=== PATIENT | male | born 1955 | race Caucasian/White ===

== ENCOUNTER 2020-01-10 15:54 | Emergency (ER) | payer BC ==
[~2020-01-10] VITALS: Ht 172.7 cm; Wt 89.0 kg
[~2020-01-10 15:54] MED LIST: LIDOcaine 1% W/epiNEPHrine 1:100,000 20ml vial ONE
[2020-01-10] MEDS ORDERED: bacitracin 15gm ointment TP ONE (16:00)
[2020-01-10] MEDS ORDERED: TETanus/Pertussis (Acell)/Diphther VAC/PF (Tdap-Adult) 0.5ml syringe IMVAC ONE (16:00)
[2020-01-10 16:01] VITALS: BP 142/91
[2020-01-10] MEDS ORDERED: CEPH250T PO (16:36)
== END 2020-01-10 16:53 | disposition home or self-care (01) ==
LOC: ER 15:54
DX: S61.411A Laceration without foreign body of right hand, initial encounter (principal); Z79.899 Other long term (current) drug therapy; W26.8XXA Contact with other sharp object(s), not elsewhere classified, initial encounter; Y93.89 Activity, other specified; Y92.89 Other specified places as the place of occurrence of the external cause; Y99.8 Other external cause status
CPT/HCPCS: 12002; 90471; 90715; 99283

== ENCOUNTER 2020-04-25 19:27 | Emergency (ER) | payer BC ==
[~2020-04-25] VITALS: Ht 172.7 cm; Wt 88.5 kg
[2020-04-25 20:02] LABS: BASOPHILS % (AUTO) 0.5 % (0-1); EOSINOPHILS # (AUTO) 0.3 X10'3 (0-0.9); EOSINOPHILS % (AUTO) 5.6 % (0-6); HEMATOCRIT 39.8 % (42.0-52.0); HEMOGLOBIN 13.6 g/dl (14.0-17.9); LYMPHOCYTES # (AUTO) 1.6 X10'3 (1.1-4.8); LYMPHOCYTES % (AUTO) 32.7 % (21-51); MEAN CORPUSCULAR HEMOGLOBIN 32.9 PG (27.0-31.0); MEAN CORPUSCULAR HGB CONC 34.1 g/dL (33.0-36.5); MEAN CORPUSCULAR VOLUME 96.5 FL (78-98); MEAN PLATELET VOLUME 9.3 FL (7.4-10.4); MONOCYTES # (AUTO) 0.7 X10'3 (0-0.9); MONOCYTES % (AUTO) 15.2 % (2-12); NEUTROPHILS # (AUTO) 2.3 X10'3 (1.8-7.7); PLATELET COUNT 151 X10'3 (140-440); RED BLOOD COUNT 4.13 X10'6 (4.70-6.10); RED CELL DISTRIBUTION WIDTH 12.7 % (11.5-14.5); WHITE BLOOD COUNT 4.9 X10'3 (4.5-11.0)
--- NOTE | 2020-04-25 20:03 | NUR ---
BACK FROM CT, ACCOMPANIED BY ME.
[2020-04-25 20:09] LABS: PARTIAL THROMBOPLASTIN TIME 26 SECONDS (22-32)
[2020-04-25 20:12] LABS: ALANINE AMINOTRANSFERASE 31 U/L (12-78); ALBUMIN 3.9 G/DL (3.4-5.0); ALBUMIN/GLOBULIN RATIO 1.1 (1.1-1.5); ALKALINE PHOSPHATASE 56 IU/L (46-116); ANION GAP 11 (8-16); ASPARTATE AMINO TRANSFERASE 26 U/L (10-37); BILIRUBIN,TOTAL 0.4 MG/DL (0.1-1.0); BLOOD UREA NITROGEN 21 MG/DL (7-18); BUN/CREATININE RATIO 14.6 (5.4-32.0); CALCIUM 8.8 MG/DL (8.5-10.1); CHLORIDE 105 MMOL/L (99-107); CREATININE 1.44 MG/DL (0.60-1.10); GLUCOSE 155 MG/DL (70-104); POTASSIUM 3.5 MMOL/L (3.5-5.1); SODIUM 142 MMOL/L (135-145); TOTAL CARBON DIOXIDE 26.2 MMOL/L (24-32); TOTAL PROTEIN 7.3 G/DL (6.4-8.2); eGFR 49 ML/MIN
[2020-04-25 20:18] LABS: TROPONIN I < 0.04 NG/ML (0.0-0.05)
[2020-04-25] MEDS ORDERED: LIDOcaine 1% W/epiNEPHrine 1:200,000 10ml vial IJ ONE (20:20)
[2020-04-25] MEDS ORDERED: LIDOcaine 1% w/epiNEPHrine 1:200,000 30ml vial IJ ONE (20:30)
[2020-04-25 22:18] VITALS: BP 134/91
--- NOTE | 2020-04-25 22:41 | NUR ---
PT REFUSED COVID SWAB. AWARE. PT DISCHARGED
== END 2020-04-25 22:41 | disposition home or self-care (01) ==
LOC: ER 19:28
DX: S01.21XA Laceration without foreign body of nose, initial encounter (principal); R05 Cough; R55 Syncope and collapse; R42 Dizziness and giddiness; X58.XXXA Exposure to other specified factors, initial encounter; Y93.89 Activity, other specified; Y92.89 Other specified places as the place of occurrence of the external cause; Y99.8 Other external cause status
CPT/HCPCS: 12011; 70450; 71045; 72125; 80053; 83880; 84484; 85025; 85610; 85730; 93005; 99285